=== PATIENT | female | born 1970 | race Caucasian/White ===

== ENCOUNTER 2024-03-17 16:38 | Emergency (ER) | payer OTHER ==
[2024-03-17 16:41] VITALS: RESP 18
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
[2024-03-17] MEDS: ACETAMINOPHEN TAB 500 MG TAB PO STA (18:31)
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
[2024-03-17 19:21] VITALS: BP 158/87; PULSE 103; TEMP 98.1
== END 2024-03-17 19:21 | disposition home or self-care (01) ==
LOC: EC 16:38
DX: S43.402A Unspecified sprain of left shoulder joint, initial encounter (principal); V43.52XA Car driver injured in collision with other type car in traffic accident, initial encounter; Y92.410 Unspecified street and highway as the place of occurrence of the external cause
CPT/HCPCS: 70450; 71046; 72125; 99284